=== PATIENT | female | born 1945 | race American Indian/Alaskan Native ===

== ENCOUNTER 2018-10-03 06:54 | Day surgery (SDC) | payer MEDICARE, OTHER ==
[2018-10-02 11:21] VITALS: BMI 32.1
[2018-10-03] MEDS ORDERED: Lactated Ringer's 1,000 ML IV ONE (09:30)
[2018-10-03] MEDS ORDERED: Propofol 10 mg/ml Inj (20 ML) ONE (09:32)
[2018-10-03] MEDS ORDERED: Etomidate 20 mg/10ml Inj IV ONE (09:33)
[2018-10-03 10:28] VITALS: O2SAT 100
[2018-10-03 11:01] VITALS: BP 159/71; PULSE 60; RESP 14; TEMP 98.4
== END 2018-10-03 10:55 | disposition home or self-care (01) ==
LOC: C.ENDO 06:54
PROVIDERS: ATTEND Internal Medicine Gastroenterology
DX: D12.2 Benign neoplasm of ascending colon (principal); Z12.11 Encounter for screening for malignant neoplasm of colon; K63.5 Polyp of colon; K57.30 Diverticulosis of large intestine without perforation or abscess without bleeding; K64.8 Other hemorrhoids; I10 Essential (primary) hypertension
CPT/HCPCS: 45380; 45385; 88305; J2001; J2405; J2704; J2765; J7120